=== PATIENT | female | born 1955 | race Caucasian/White ===

== ENCOUNTER 2020-09-25 10:10 | Outpatient (REF) | payer OTHER, SELFPAY ==
--- NOTE | 2020-09-25 | XR_ITS ---
EXAMINATION: XR KNEE, RIGHT CLINICAL INFORMATION: Right knee pain. Possible effusion. COMPARISON: Standing AP knees 04/18/2016 TECHNIQUE: Four views of the right knee. FINDINGS: There is a moderate to large suprapatellar effusion. Hoffa's fat pad is unremarkable. There is no fracture, dislocation or destruction process. There is no joint narrowing or erosive change. There is borderline spurring medial femoral condyle and medial tibial plateau similar to prior radiographs 2016. XR/XR knee RT 4V IMPRESSION: 1. Moderate to large suprapatellar effusion. 2. No acute bony abnormality.
== END 2020-09-25 10:11 | disposition home or self-care (01) ==
LOC: HO.HMGCX 10:10
PROVIDERS: PCP Internal Medicine; Visit Provider Internal Medicine
DX: M25.561 Pain in right knee (principal)
CPT/HCPCS: 73564

== ENCOUNTER → 2020-09-28 12:12 | Outpatient (BNVA) | payer OTHER, SELFPAY | PROVIDERS: Visit Provider Orthopaedic Surgery | DX: M23.91 Unspecified internal derangement of right knee (principal) | CPT/HCPCS: 20610 ==

== ENCOUNTER 2020-11-10 10:00 | Outpatient (RCR) | payer OTHER, SELFPAY ==
--- NOTE | 2020-10-13 12:20 | MHC.PT.EP ---
[facility] [place] Office [place] Office [place] [facility] [address] Susana Lehman [address] [phone] F: [phone] F: [phone] F: [phone] F: [phone] Physical Therapy Plan of Care Date of Evaluation: 10/13/20 Date of Surgery: Diagnosis: This is a 65 yo female presenting to skilled PT with internal derangement of the R knee. Assessment: Patient reports her L knee buckled and she landed harder on the R (on 09/19). She saw Dr. Mejia who removed fluid which helped a little and referred to PT. The initial pain was so bad she could not walk however fluid removal helped slightly. She reports instability/buckling and she has sharp pain (medially/anterior and posteriorly/laterally) that is constant. She is still limited in ascending and descending stairs. She is also bothered when sleeping as she cannot find a comfortable position. Additionally, she is also functionally limited in transfers into standing, walking (every time she puts weight through the extremity) and needs to adapt with ADLs. She wears a knee brace throughout the day currently (sleeve). Assessment reveals pain that ranges up to a 7/10. She demos decreased knee and ankle ROM, decreased knee and ankle strength, impaired gait pattern with inability to reach full knee extension and adequate ankle DF, impaired patella mobility and swelling as well as gross functional decline with mobility and transfers. She is a great candidate for skilled PT 2x/wk for 5wks. Frequency and Duration: The patient will be seen 2x/wk for 5wks Short Term Goals: I in HEP Demo normal knee AROM Perform proper squatting techniques without cues, instability or pain [employer] Trader Goals: Demo equal swelling B Perform stairs with proper gait pattern Improve pain to no more than 2/10 and report no instability with movements throughout day Demo normal strength B Treatment Plan: Modalities to reduce pain, spasms and effusion. Manual therapy to restore motion and function. Therapeutic exercise to improve strength and flexibility. Neuromuscular re-education for posture and balance. Therapeutic activities to return to functional activities of daily living. Electronically signed by: Pastora Stuart PT Please sign and return to therapist. Thank you for your referral.
--- NOTE | 2020-12-04 13:41 | MHC.PT.DC ---
[facility] [place] [facility] [place] Office [place] Office [address] Susana Lehman 140 [facility] [phone] F: [phone] F: [phone] F: [phone] F: [phone] Physical Therapy Discharge Report Diagnosis: This is a 65 yo female presenting to skilled PT with internal derangement of the R knee. Date of Surgery: Date of Evaluation: 10/13/20 Date of Discharge: 12/04/20 Treatments to Date: 7 Cancellations to Date: 0 No Shows to Date: 0 Discharge Status: Improved Function Patient Elected to Stop Discharge Summary: Pt WAS PROGRESSING WELL IN PT FOR HER RIGHT KNEE PAIN/DERANGEMENT- SHE HAD TO D/C HERSELF AT THIS TIME DUE TO OTHER FAMILY RESPONSIBILITIES- SHE WAS TOLERATING INCR FUNCTIONAL MOBILITY AND IMPROVED STRENGTH IN Rt LE -Pt TO CONT W HEP SHE IS ABLE AND WILL CONTACT MD IF RIGHT KNEE SXS ARE EXACERBATED. Electronically signed by: Sunitha Park,PT Please sign and return to therapist. Thank you for your referral.
== END 2020-12-04 13:43 | disposition other institution (70) ==
LOC: HO.PTCHIC 10:00
PROVIDERS: PCP Internal Medicine; Visit Provider Orthopaedic Surgery
DX: M23.91 Unspecified internal derangement of right knee (principal)
CPT/HCPCS: 97035; 97110; 97140; 97162

== ENCOUNTER 2021-11-05 14:26 | Outpatient (REF) | payer OTHER, SELFPAY ==
--- NOTE | ~2021-11-05 | MR_ITS ---
EXAMINATION: MR KNEE WITHOUT CONTRAST, RIGHT CLINICAL INFORMATION: Right knee swelling. Pain. Decreased range of motion. Twisting injury. COMPARISON: None TECHNIQUE: MRI of the knee without contrast was performed using routine sequences on a high-field scanner. FINDINGS: MENISCI: Medial Meniscus: A radial tear of the posterior horn occurs 1 cm from the posterior root insertion and extends through the full meniscal cross section. Meniscal body is partially extruded medially. A horizontal component of the tear is present at the inner fibers of the meniscal body with significant free-edge fraying. Lateral Meniscus: Free-edge fraying at the posterior horn. No discrete tears. LIGAMENTS: Cruciate: ACL is relatively diminutive, potentially due to a chronic partial tear. Interligamentous cystic changes consistent with mucoid degeneration of the ACL ganglion. The PCL is thickened and low in signal intensity, the result of an old PCL sprain. No tears. Collateral: Edema signal around the MCL is likely reactive to the underlying meniscal abnormality. Collateral ligaments are intact. Mild popliteus tendinosis. EXTENSOR MECHANISM: Enthesopathic spurring is present at the quadriceps tendon insertion on the patella. No tears. ARTICULAR CARTILAGE/BONE: Patellofemoral Compartment: There is mild nonuniform chondral thinning at the patella with a 1.4 x 0.8 cm area of moderate partial-thickness cartilage loss and full-thickness chondral fissuring with underlying cortical irregularity and subcortical cystic change. Small marginal osteophytes. Full-thickness chondral fissures and cortical irregularity are noted at the inferior aspect of medial trochlear facet. Medial Compartment: There is moderate nonuniform chondral thinning at the medial tibial plateau and, to a lesser extent, the medial femoral condyle with foci of full-thickness chondral fissuring and underlying subchondral edema. Anfzm-ow-djjsnsli sized marginal osteophytes are also noted. Lateral Compartment: Small marginal osteophytes. Minimal chondral surface irregularity at the lateral tibial plateau. JOINT FLUID AND BURSAE: Moderate-sized joint effusion. Trace Basilio's cyst. Fluid is present in the popliteus tendon sheath as well as a small 6 mm intermediate signal intensity focus that likely corresponds to a chondral loose body. A few small low-signal intensity loose bodies in the Basilio's cyst also likely correspond to chondral loose bodies, measuring up to 5 mm in diameter. MR/MR knee RT wo con IMPRESSION: 1. Complete radial tear of the posterior horn of the medial meniscus with significant fraying of the meniscal body. 2. Diminutive ACL, potentially due to a chronic partial tear. Thickened PCL may be due to a prior sprain. 3. Mckh-by-sojygljn medial compartment osteoarthritis with more mild osteoarthritis in the patellofemoral and lateral compartments. 4. Moderate-sized joint effusion and trace Basilio's cyst with multiple small chondral loose bodies.
== END 2021-11-05 14:27 | disposition home or self-care (01) ==
LOC: HO.MRI 14:26
PROVIDERS: PCP Internal Medicine; Visit Provider Internal Medicine
DX: M25.561 Pain in right knee (principal); M25.461 Effusion, right knee
CPT/HCPCS: 73721

== ENCOUNTER → 2021-11-22 10:35 | Outpatient (BNVA) | payer OTHER, SELFPAY | PROVIDERS: PCP Internal Medicine; Visit Provider Orthopaedic Surgery | DX: M23.203 Derangement of unspecified medial meniscus due to old tear or injury, right knee (principal) | CPT/HCPCS: 99212 ==

== ENCOUNTER 2021-11-24 07:29 | Outpatient (REF) | payer OTHER, SELFPAY ==
[2021-11-24 11:28] LABS: MANUAL DIFF FLAG NO
[2021-11-24 11:45] LABS: Basophils Percent Auto 0.7 % (0-2); Eosinophils Absolute Auto 0.2 X10*3/uL (0.0-0.4); Eosinophils Percent Auto 3.6 % (0-4); Hematocrit 41.4 % (37.0-47.0); Hemoglobin 13.8 g/dl (12.0-16.0); Imm Gran Abs Auto 0.03 X10*3/uL (0.00-0.03); Imm Gran Pct Auto 0.5 % (0.0-0.4); Lymphocytes Absolute Auto 1.4 X10*3/uL (1.2-4.9); Lymphocytes Percent Auto 24.1 % (20-40); Mean Corpuscular HGB Conc 33.3 g/dl (31.0-35.0); Mean Platelet Volume 10.6 fL (9.4-12.3); Monocytes Absolute Auto 0.5 X10*3/uL (0.1-1.2); Monocytes Percent Auto 8.3 % (2-11); Neutrophils Absolute Auto 3.6 x10*3/uL (2.0-8.3); Neutrophils Percent Auto 62.8 % (45-73); Platelet Count 210 X10*3/uL (160-400); Red Blood Count 4.45 X10*6/uL (4.20-5.50); Red Cell Distribution Width 12.2 % (11.0-16.0); White Blood Count 5.8 X10*3/uL (4.8-10.8)
[2021-11-24 12:27] LABS: Alanine Aminotransferase 29 U/L (0-31); Albumin Level 4.1 g/dL (3.5-5.0); Alkaline Phosphatase 66 U/L (39-117); Anion Gap 13 (12-20); Aspartate Amino Transferase 24 U/L (5-31); Bilirubin Total 0.7 mg/dL (0.0-1.0); Blood Urea Nitrogen 14 mg/dL (9-16); Calcium 9.5 mg/dL (8.4-10.2); Carbon Dioxide 27 mmol/L (22-29); Chloride 100 mmol/L (96-108); Cholesterol 196 mg/dL; Estimated Glomerular Filt Rate > 60; Glucose Fasting 108 mg/dL (60-99); HDL Cholesterol 56 mg/dL; LDL Cholesterol Calculated 119 mg/dl; Potassium 3.6 mmol/L (3.3-5.1); Sodium 136 mmol/L (135-145); Total Protein 6.7 g/dL (6.5-8.0); Triglycerides 105 mg/dL
== END 2021-11-24 07:30 | disposition home or self-care (01) ==
LOC: HO.HMGCLDS 07:29
PROVIDERS: Visit Provider Internal Medicine
DX: Z00.00 Encounter for general adult medical examination without abnormal findings (principal); R53.83 Other fatigue; E78.5 Hyperlipidemia, unspecified
CPT/HCPCS: 36415; 80053; 80061; 85025

== ENCOUNTER 2022-01-04 14:57 | Outpatient (REF) | payer OTHER, SELFPAY ==
--- NOTE | ~2022-01-04 | MM_ITS ---
EXAMINATION: BONE DENSITOMETRY CLINICAL INDICATION: Encounter for screening for osteoporosis. COMPARISON: None (current study represents initial baseline exam). TECHNIQUE: Using a VetCompare DXA System (software version: 13.1) manufactured by [employer], dual-energy x-ray absorptiometry was performed of the lumbar spine and left hip. The images are of good technical quality. Summary results are attached. FINDINGS: AP SPINE L1-L4: BMD 1.293 g/cm2, Z-score 1.7, T-score 0.9, normal. LEFT FEMUR, NECK: BMD 0.918 g/cm2, Z-score 0.1, T-score -0.9, normal. LEFT FEMUR, TOTAL: BMD 0.992 g/cm2, Z-score 0.5, T-score -0.1, normal. IDENTIFIED RISK FACTORS: Early menopause, secondary osteoporosis, history of fracture (adult), thiazide, hysterectomy, right oophorectomy. HISTORY OF FRACTURE: Fibula. MEDICATIONS: None listed. MM/XR DEXA axial skeleton IMPRESSION: 1. DIAGNOSIS: Normal bone density based on the lowest T-score value of -0.9 in the femoral neck applying World Health Organization criteria. 2. 10-YEAR FRACTURE RISK PREDICTION, FRAX: According to the guidelines, FRAX calculation should only be performed on patients in the osteopenia bone density category. Therefore, FRAX was not performed on this patient. 3. Treatment Recommendations: NOF guidelines recommend consideration for treatment in postmenopausal women and men age 50 and older presenting with the following: -A hip or vertebral (clinical or morphometric) fracture. -T-score less than or equal to -2.5 at the femoral neck or spine after appropriate evaluation to exclude secondary causes. -Low bone mass at the hip or spine and a 10-year fracture probability by FRAX of greater than or equal to 3% for hip fracture or greater than or equal to 20% for major osteoporotic fracture based on the [place] adapted WHO algorithm. 4. Other Recommendations: All treatment decisions require clinical judgment and consideration of individual patient factors, including patient preferences, comorbidities, previous drug use, risk factors not captured in the FRAX model (e.g. frailty, falls, vitamin D deficiency, increased bone turnover, interval significant decline in bone density) and possible under or overestimation of fracture risk by FRAX. FUTURE SCAN RECOMMENDATION: People with diagnosed cases of osteoporosis or at high risk for fracture should have regular bone mineral density tests. For patients eligible for Medicare, routine testing is allowed once every 2 years. The testing frequency can be increased to one year for patients who have rapidly progressing disease, those who are receiving or discontinuing medical therapy to restore bone mass, or have additional risk factors.
== END 2022-01-04 14:58 | disposition home or self-care (01) ==
LOC: HO.MAMMO 14:57
PROVIDERS: Visit Provider Internal Medicine
DX: Z13.820 Encounter for screening for osteoporosis (principal); Z78.0 Asymptomatic menopausal state
CPT/HCPCS: 77080

== ENCOUNTER 2022-02-18 12:38 | Outpatient (REF) | payer OTHER, SELFPAY ==
--- NOTE | ~2022-02-18 | CT_ITS ---
EXAMINATION: CT ABDOMEN AND PELVIS WITHOUT CONTRAST CLINICAL INFORMATION: Gross hematuria. COMPARISON: None. TECHNIQUE: Multidetector volumetric imaging was performed from the superior aspect of the liver through the pubic symphysis. Sagittal and coronal reformatted images were obtained on the technologist's workstation. This CT examination was performed using dose optimization techniques as appropriate, variously including the following: *Automated exposure control *Adjustment of mA and/or kV according to patient size (this includes techniques or standardized protocols for targeted exams where dose is matched to indication/reason for exam; i.e. extremities or head) *Use of iterative reconstruction technique DLP: 597 mGy-cm. FINDINGS: LUNG BASES: The lung bases are clear. Heart size is normal. LIVER, GALLBLADDER, AND BILIARY TREE: The liver is normal in size, shape, and attenuation. No focal hepatic lesion or biliary ductal dilatation is present. The gallbladder is unremarkable with no evidence of radiopaque gallstones, gallbladder wall thickening, or obvious pericholecystic inflammatory changes. PANCREAS: Unremarkable. SPLEEN: Unremarkable. ADRENAL GLANDS: Unremarkable. KIDNEYS AND URETERS: The kidneys are normal in size, shape, and attenuation. No hydronephrosis, hydroureter, or calculi seen. No perinephric stranding. BLADDER: Unremarkable. GASTROINTESTINAL TRACT: There is scattered diverticuli, stool and gas seen throughout the colon without diverticulitis or distention. The small bowel loops are normal caliber. Appendix is normal caliber. No free air or free fluid seen. ABDOMINAL WALL: No significant hernia is appreciated. LYMPH NODES: Normal. VASCULAR: Unremarkable. PELVIC VISCERA: There are scattered phleboliths in the pelvis. The uterus is surgically absent. OSSEOUS STRUCTURES: There is moderate ventral spondylosis lower dorsal upper lumbar spine. No aggressive lytic or sclerotic process seen. CT/CT abdomen pelvis wo con IMPRESSION: No radiopaque urolith or hydroureteronephrosis. Mild constipation with colonic diverticulosis but no diverticulitis. Fleischner guidelines were followed.
== END 2022-02-18 12:39 | disposition home or self-care (01) ==
LOC: HO.CT 12:38
PROVIDERS: PCP Internal Medicine; Visit Provider Physician Assistant
DX: R31.0 Gross hematuria (principal)
CPT/HCPCS: 74176

== ENCOUNTER 2022-03-23 14:17 | Outpatient (REF) | payer OTHER, MEDICARE, SELFPAY ==
[2022-03-23 16:53] LABS: Blood Urea Nitrogen 23 mg/dL (9-16); Estimated Glomerular Filt Rate 60
== END 2022-03-23 14:18 | disposition home or self-care (01) ==
LOC: HO.HMGCLDS 14:17
PROVIDERS: Visit Provider Physician Assistant
DX: R31.0 Gross hematuria (principal)
CPT/HCPCS: 36415; 82565; 84520

== ENCOUNTER 2022-06-09 14:17 | Outpatient (REF) | payer OTHER, MEDICARE, SELFPAY ==
--- NOTE | ~2022-06-09 | XR_ITS ---
EXAMINATION: XR LUMBOSACRAL SPINE WITH OBLIQUES CLINICAL INFORMATION: Pain COMPARISON: None TECHNIQUE: 3 views of the lumbar spine. Lateral view of the lumbosacral junction. FINDINGS: There is mild curvature of the lumbar spine to the left. Bone alignment is otherwise normal. There is multilevel degenerative spondylosis. There is multilevel facet arthritis. Disc spaces are normal. Paraspinal soft tissues are normal. XR/XR lumbar spine 4V min IMPRESSION: Mild scoliosis and degenerative changes.
--- NOTE | ~2022-06-09 | XR_ITS ---
EXAMINATION: XR HIP, RIGHT CLINICAL INFORMATION: Pain. Radiculopathy. COMPARISON: None TECHNIQUE: Two views of the right hip. FINDINGS: Bone alignment is normal. No fracture or dislocation. There is arthritis at the right hip joint. There is soft tissue ossification adjacent to the right greater trochanter. XR/XR hip RT min 2V IMPRESSION: Mild arthritis at the right hip joint and soft tissue ossification adjacent to the right greater trochanter.
== END 2022-06-09 14:18 | disposition home or self-care (01) ==
LOC: HO.HMGCX 14:17
PROVIDERS: PCP Internal Medicine; Visit Provider Internal Medicine
DX: M25.551 Pain in right hip (principal); M54.16 Radiculopathy, lumbar region
CPT/HCPCS: 72110; 73502

== ENCOUNTER 2023-03-06 08:25 | Outpatient (REF) | payer OTHER, SELFPAY | END 2023-03-06 08:26 | disposition home or self-care (01) | LOC: HO.LAB 08:25 | PROVIDERS: PCP Internal Medicine; Visit Provider Internal Medicine | DX: Z00.00 Encounter for general adult medical examination without abnormal findings (principal); R53.83 Other fatigue; E78.5 Hyperlipidemia, unspecified | CPT/HCPCS: 36415; 80053; 80076; 82248; 85025 ==

== ENCOUNTER 2023-08-08 12:00 | Outpatient (REF) | payer OTHER, SELFPAY | END 2023-08-08 12:01 | disposition home or self-care (01) | LOC: HO.MAMMO 12:00 | PROVIDERS: PCP Internal Medicine; Visit Provider Internal Medicine | DX: Z12.31 Encounter for screening mammogram for malignant neoplasm of breast (principal) | CPT/HCPCS: 77063; 77067 ==

== ENCOUNTER → 2023-08-08 12:15 | Outpatient (BNV) | payer OTHER, SELFPAY | PROVIDERS: PCP Internal Medicine; Visit Provider Radiology Diagnostic Radiology | DX: Z12.31 Encounter for screening mammogram for malignant neoplasm of breast (principal) | CPT/HCPCS: 77063; 77067 ==

== ENCOUNTER 2025-04-28 14:53 | Outpatient (AMB) | payer OTHER, SELFPAY ==
--- NOTE | 2025-04-28 14:53 | MHC.PC.OV ---
Vital Signs 04/28/25 15:07 Height 5 ft 1.81 in Weight 191 lb BMI 35.1 BP 135/64 Respiration 16 Pulse 62 Pulse Source Pulse Oximeter Temp 98.1 F Temp Source Temporal Artery Scan Pulse Oximetry (%) 95 Oxygen Delivery Method Room Air Intake Visit Reasons: Establish Care / Dr. España - see comments [employer]icle[employer] Worker Required: No Accompanied by: Self / Same As Patient Allergies Sulfa (Sulfonamide Antibiotics) (SULFA (SULFONAMIDE ANTIBIOTICS)) Allergy (Severe, Verified 04/28/25 14:53) DECREASE IN WBC, RASH FEVER., Destroys white blood cell count sulindac (SULINDAC) Allergy (Intermediate, Verified 04/28/25 14:53) NAUSEA & VOMITING, intestinal bleeding ibuprofen Allergy (Unknown, Verified 04/28/25 14:53) severe headache levofloxacin (From LEVAQUIN) Allergy (Unknown, Verified 04/28/25 14:53) UNKNOWN merbromin (From Mercurochrome) Allergy (Unknown, Verified 04/28/25 14:53) SPREADS THROUGH WHOLE BODY oxycodone (From OxyContin) Allergy (Unknown, Verified 04/28/25 14:53) Unknown NSAIDS (Non-Steroidal Anti-Inflamma (NSAIDS (NON-STEROIDAL ANTI-INFLAMMA) Adverse Reaction (Intermediate, Verified 04/28/25 14:53) HEADACHES hydrocontin Allergy (Unknown, Uncoded 04/28/25 14:53) hallucinations PERSERVED SALINE SOLUTION Allergy (Unknown, Uncoded 04/28/25 14:53) CONJUCTIVITIS IN BOTH EYES Tobacco use date assessed: 04/28/25 Fall risk assessment: No Falls in past year Last assessed Fall Risk: 04/28/25 Dental Screening Dental Screen Date: 04/28/25 Did you have a dental visit in the last 12 months?: Yes Did you have a dental problem in the last 6 months where you did not have access to dental care?: No Was dental information given to patient?: Patient has dentist [facility] Medical History (Updated 04/28/25 @ 15:32 by Goyo Weeks MD) Internal derangement of right knee Anxiety Arthritis Hypertension Surgical History [place] teeth removed History of repair of right rotator cuff History of hysterectomy History of tonsillectomy Family History (Updated 04/28/25 @ 15:12 by SABINA Wood) Father No problems noted. Mother BP (high blood pressure) Social History (Updated 04/28/25 @ 15:13 by SABINA Wood) Housing: House Alcohol intake: current Alcohol intake frequency: a few times a week Patient Tobacco Use Status: Never used Tobacco service: No Current occupational status: retired Cognitive needs: No Hearing needs: No Vision needs: Yes (rx glasses) Questionnaire PHQ-9 Over the last 2 weeks, how often have you been bothered by any of the following problems? 1. Little interest or pleasure in doing things: not at all 2. Feeling down, depressed, or hopeless: not at all 3. Trouble falling or staying asleep, or sleeping too much: not at all 4. Feeling tired or having little energy: not at all 5. Poor appetite or overeating: not at all 6. Feeling bad about yourself - or that you are a failure or have let yourself or your family down: not at all 7. Trouble concentrating on things, such as reading the newspaper or watching television: not at all 8. Moving or speaking so slowly that other people could have noticed. Or the opposite - being so fidgety or restless that you have been moving around a lot more than usual: not at all 9. Thoughts that you would be better off or of hurting yourself in some way: not at all Total score: 0 Source: Developed by Drs. Jose Angel Calvillo, Sangeetha Owen, Marco lEaine and colleagues, with an educational geovany from [employer]. Thrive Questionnaire Date Thrive assessed: 04/28/25 I am a: Patient What is your living situation today?: I have a steady place to live Within the past 12 months, did the food you bought not last and you didn't have the money to get more?: Never true Within the past 12 months, did you worry whether your food would run out before you got money to buy more?: Never true Do you have trouble paying for medicines?: No Do you have trouble getting transportation to medical appointments?: No Do you have trouble paying your heating and electricity bill?: No Do you have trouble taking care of your child, family member or friend?: No Do you have trouble with day-to-day activities such as bathing, preparing meals, shopping, managing finances, etc.?: No Are you currently unemployed and looking for a job?: No Are you interested in more education?: No Please select the resources that you would like help with: None THRIVE Score: 0 AUDIT C Alcohol Use Questionnaire (AUDIT-C) 1. How often do you have a drink containing alcohol?: 2-4 times a month 2. How many drinks containing alcohol do you have on a typical day when you are drinking?: 1 or 2 3. How often do you have six or more drinks on one occasion?: Never Total Score: 2 KEO-7 AMB Questionnaire KEO-7 Date KEO - 7 assessed: 04/28/25 Feeling nervous, anxious, or on edge: 0 = Not at all Not being able to stop or control worryin = Not at all Worrying too much about different things: 0 = Not at all Trouble relaxin = Not at all Being so restless that it is hard to sit still: 0 = Not at all Becoming easily annoyed or irritable: 0 = Not at all Feeling afraid as if something awful might happen: 0 = Not at all Total KEO-7 score (0-4 normal; 5-9 mild; 10-14 moderate; 15-21 severe): 0 Source: Developed by Drs. Jose Angel Calvillo, Sangeetha Owen, Marco Elaine and colleagues, with an educational geovany from [employer]. Physical exam (Primary Care) Vital Signs: Last Vital Signs Temp 98.1 F 04/28/25 15:07 Pulse 62 04/28/25 15:07 Resp 16 04/28/25 15:07 BP 135/64 04/28/25 15:07 Pulse Ox 95 04/28/25 15:07 Oxygen Delivery Method Room Air 04/28/25 15:07 BMI result Body Mass Index 35.1 Tobacco/Smoking Status: Tobacco use Status Tobacco use date assessed 04/28/25 04/28/25 14:55 Patient Tobacco Use Status Never used Tobacco 04/28/25 15:13 PHQ-9: PHQ-9 Score PHQ-9: Total score 0 04/28/25 15:04 Thrive Assessment: Date of Thrive Assessment Date Thrive assessed 04/28/25 04/28/25 15:04 Coding Level of Care Code New Pt Level 4 (30790) Complex EM visit Add On G2211 Diagnoses Anxiety F41.9 Assessment & Plan Assessment & Plan (1) Anxiety: Code(s): F41.9 - Anxiety disorder, unspecified Category: Medical Plan: History of Present Illness - The patient is a 70-year-old female presenting for medication management and preventative care. - Anxiety disorder: The patient takes lorazepam, typically one in the morning, and occasionally a second dose if the day is particularly stressful. She has been prescribed up to three doses per day but usually takes two. She experiences anxiety in crowded or uncontrollable situations. - Hypertension: The patient is on hydrochlorothiazide for hypertension management, which was recently refilled. - Influenza: The patient reported having the flu approximately two weeks ago and is still recovering, with some residual stomach discomfort. - Breast lump (resolved): Approximately five years ago, the patient discovered a blood-filled lump on her breast while gardening. Subsequent mammograms and biopsies revealed only blood, with no malignancy detected. She continues to experience pain at the site, likely due to scar tissue. - Preventative care: The patient has not had a mammogram this year but agreed to have one ordered. She has never had a colonoscopy and expressed reluctance to undergo one, citing no family history of colon cancer. Social History - Employment: The patient is retired. - Family status: She is caring for a handicapped sister who uses a wheelchair. - Social interactions: The patient reports discomfort in crowded or uncontrollable situations. Review of Systems - Respiratory: Reports crackles, indicating resolving respiratory infection. - Gastrointestinal: Reports residual stomach discomfort following influenza. Physical Exam General: Cooperative and healthy appearing Nutritional Appearance: Well nourished Orientation/consciousness: Patient oriented x3 Limitations: No limitations Head: Normal to inspection General: Appearance normal, both eyes and all related structures Neck: Normal visual inspection Chest: Normal palpation of entire chest wall Respiratory: Crackles present ormal respiratory effort Neurology: Patient oriented x3 Results Plan 1. Anxiety Disorder - Continue lorazepam with adjusted prescription to twice daily as needed. 2. Hypertension - Continue current management with hydrochlorothiazide. 3. Influenza - Monitor symptoms and provide supportive care as needed. 4. Breast Lump (Resolved) - Continue annual mammograms to monitor for any changes. 5. Preventative Care: Mammogram - Order mammogram for routine screening. 6. Preventative Care: Colon Cancer Screening Discussion - Discussed options for colon cancer screening, including Cologuard, but patient declined colonoscopy. Discussion Notes I discussed with the patient the importance of continuing her current medications, including lorazepam and hydrochlorothiazide. We reviewed the need for regular mammograms and discussed colon cancer screening options, though the patient declined a colonoscopy. I emphasized the importance of monitoring her symptoms following influenza and encouraged supportive care. We agreed to follow up in six months to reassess her condition and review any new concerns. Patient Instructions - Continue taking lorazepam as prescribed, up to twice daily as needed. - Continue taking hydrochlorothiazide for blood pressure management. - Schedule and complete the mammogram as ordered. - Monitor symptoms of influenza and seek care if they worsen. - Follow up in six months for reassessment.
[2025-04-28 15:07] VITALS: BP 135/64; PULSE 62; RESP 16; TEMP 36.7; O2SAT 95; BMI 35.1
== END 2025-04-28 15:27 | disposition home or self-care (01) ==
LOC: HO.HMCSH 14:53
PROVIDERS: PCP Internal Medicine; Visit Provider Internal Medicine
DX: F41.9 Anxiety disorder, unspecified (principal)

== ENCOUNTER 2025-04-30 09:58 | Outpatient (REF) | payer OTHER, MEDICARE, SELFPAY ==
[2025-04-30 13:55] LABS: Appearance Urine Clear; Glucose Urine UA Negative (Negative); PH 5.5 (5.0-9.0); Specific Gravity - Urine 1.020 (1.005-1.025)
[2025-04-30 14:00] LABS: Hematocrit 39.8 % (37.0-47.0); Hemoglobin 13.6 g/dl (12.0-16.0); Mean Corpuscular HGB Conc 34.2 g/dl (31.0-35.0); Mean Corpuscular Hemoglobin 30.8 pg (27.0-33.0); Mean Corpuscular Volume 90.2 fL (80.0-98.0); NRBC Abs Auto 0.000 X10*3/uL (0.0-0.012); NRBC Pct Auto 0.0 /100WBC (0.0-0.2); Platelet Count 317 X10*3/uL (160-400); Red Blood Count 4.41 X10*6/uL (4.20-5.50); White Blood Count 7.2 X10*3/uL (4.8-10.8)
[2025-04-30 14:36] LABS: Alanine Aminotransferase 75 U/L (0-31); Albumin Level 4.1 g/dL (3.5-5.0); Alkaline Phosphatase 80 U/L (39-117); Anion Gap 14 (12-20); Aspartate Amino Transferase 47 U/L (5-31); Blood Urea Nitrogen 16 mg/dL (9-16); Calcium 9.2 mg/dL (8.4-10.2); Carbon Dioxide 25 mmol/L (22-29); Chloride 98 mmol/L (96-108); Cholesterol 168 mg/dL (<200); Estimated Glomerular Filt Rate > 60; HDL Cholesterol 45 mg/dL (>40); Potassium 3.3 mmol/L (3.3-5.1); Sodium 134 mmol/L (135-145); Thyroid Stimulating Hormone 0.88 uIU/mL (0.32-4.0); Total Protein 6.8 g/dL (6.5-8.0); Triglycerides 186 mg/dL (<150)
== END 2025-04-30 09:59 | disposition home or self-care (01) ==
LOC: HO.HMGCLDS 09:58
PROVIDERS: PCP Internal Medicine; Visit Provider Internal Medicine
DX: F41.9 Anxiety disorder, unspecified (principal); Z13.6 Encounter for screening for cardiovascular disorders
CPT/HCPCS: 36415; 80048; 80061; 80076; 81003; 84443; 85027

== ENCOUNTER 2025-06-24 14:57 | Outpatient (AMB) | payer OTHER, MEDICARE, SELFPAY ==
--- NOTE | 2025-06-24 15:21 | AM.OFFWIN_ITS ---
Intake Vital Signs 06/24/25 15:23 Height 5 ft 1.81 in Weight 196 lb BMI 36.1 BP 140/65 H Blood Pressure Location Rt brachial Position Sitting Pulse 65 Pulse Source Pulse Oximeter Temp 98.5 F Temp Source Oral Pulse Oximetry (%) 93 Oxygen Delivery Method Room Air Intake Visit Reasons: EP Right eye pain/irritation Intake Note: EP feels there is a piece of sand in her right eye since yesterday. She also feels sharp pain in her eyes. Patient Tobacco Use Status: Never used Tobacco Allergies Sulfa (Sulfonamide Antibiotics) (SULFA (SULFONAMIDE ANTIBIOTICS)) Allergy (Severe, Verified 06/24/25 15:34) DECREASE IN WBC, RASH FEVER., Destroys white blood cell count sulindac (SULINDAC) Allergy (Intermediate, Verified 06/24/25 15:34) NAUSEA & VOMITING, intestinal bleeding ibuprofen Allergy (Unknown, Verified 06/24/25 15:34) severe headache levofloxacin (From LEVAQUIN) Allergy (Unknown, Verified 06/24/25 15:34) UNKNOWN merbromin (From Mercurochrome) Allergy (Unknown, Verified 06/24/25 15:34) SPREADS THROUGH WHOLE BODY oxycodone (From OxyContin) Allergy (Unknown, Verified 06/24/25 15:34) Unknown NSAIDS (Non-Steroidal Anti-Inflamma (NSAIDS (NON-STEROIDAL ANTI-INFLAMMA) Adverse Reaction (Intermediate, Verified 06/24/25 15:34) HEADACHES hydrocontin Allergy (Unknown, Uncoded 04/28/25 14:53) hallucinations PERSERVED SALINE SOLUTION Allergy (Unknown, Uncoded 04/28/25 14:53) CONJUCTIVITIS IN BOTH EYES Do you need a note to return to daycare/school/sports/work: No HPI HPI Comments History of Present Illness Details History of Present Illness - The patient is a 70-year-old female pr esenting with right eye irritation. - The eye discomfort began yesterday, in itially feeling like something was in the eye. - The pain is constant and worsens with blinking - The discomfort progressed from irritat ion to pain, with no improvement from [id number] eye drops. - The patient attempted using refresh ey e drops, gel lubricating drops, and Visine, none of which alleviated the symptoms. - The patient does not wear contact lens es and has an eye doctor, though contact was unsuccessful. Review of Systems - Eyes: Reports constant pain, worsens w ith blinking, denies changes in vision, denies discharge or encrustation. All systems reviewed and are unremarkable except as noted in HPI Physical Exam General: Cooperative, healthy appearing, comfortable, no acute distress and well developed Orientation: Patient oriented x3 Limitations: No limitations Head: Normal to inspection Ears: Hearing grossly normal bilaterally Nose: Normal External nose present Face and sinus: Normal facial exam Eyes: Appearance normal, both eyes and all related structures. see Fluroscein eye exam and PE exam below Neck: Normal visual inspection and Yes full ROM Respiratory: Normal respiratory effort and able to speak in complete sentences. Skin: No rashes or lesions noted Neuro: Patient oriented x3 Extremities: Normal to inspection [facility] Medical History (Updated 06/24/25 @ 15:57 by Meaghan Bobby PA-C) Internal derangement of right knee Anxiety Arthritis Hypertension Surgical History [place] teeth removed History of repair of right rotator cuff History of hysterectomy History of tonsillectomy Family History (Updated 04/28/25 @ 15:12 by SABINA Wood) Father No problems noted. Mother BP (high blood pressure) Social History (Updated 04/28/25 @ 15:13 by SABINA Wood) Housing: House Alcohol intake: current Alcohol intake frequency: a few times a week Patient Tobacco Use Status: Never used Tobacco service: No Current occupational status: retired Cognitive needs: No Hearing needs: No Vision needs: Yes (rx glasses) Physical Exam Vital Signs: Last Vital Signs Temp 98.5 F 06/24/25 15:23 Pulse 65 06/24/25 15:23 BP 140/65 H 06/24/25 15:23 Pulse Ox 93 06/24/25 15:23 Oxygen Delivery Method Room Air 06/24/25 15:23 BMI result Body Mass Index 36.1 Eyes General: appearance normal, both eyes and all related structures Alignment and Position: alignment normal and position normal Periorbital: periorbital findings normal Eyelids: Yes eyelids normal Conjunctivae: conjunctivae normal Corneas: fluorescein used Pupils: Equal, round and reactive pupils present EOM: EOMs intact bilaterally Neuro Cranial nerves: Yes Equal, round and reactive pupils present Office Procedures Fluorescein eye exam Details: instilled 2 gtts tetracaine, applied Bio-Glow strip and under blue light, 2 corneal abrasions, one oval 0.50cm x 0.25cm at 6 o'clock and larger one, 0.75cm round at 9 o'clock of the right eye Assessment & Plan Assessment & Plan (1) Corneal abrasion, right: Code(s): S05.01XA - Injury of conjunctiva and corneal abrasion without foreign body, right eye, initial encounter Qualifiers: Encounter type: initial encounter Qualified Code(s): S05.01XA - Injury of conjunctiva and corneal abrasion without foreign body, right eye, initial encounter Plan: Patient was informed and verbally consented to the use of an ambient scribe for clinic note documentation during this visit. - Performed a corneal abrasion test using numbing drops and fluorescein dye to check for scratches on the cornea. - Fluoroscein eye exa revealed 2 corneal abrasions, sent RX to pharmacy. - Advised if worsening eye pain or changes in vision occur to go to the Emergency Department or see your Ophthmalogist DONNA. Orders: Orders AMB Fluorescein eye exam Today S05.01XA - Injury of conjunctiva and corneal abrasion without foreign body, right eye, initial encounter Medications: New erythromycin Apply to right eye 4 times a day while awake 0.5 inches ophthalmic-Right QID 3.5 grams 0RF Coding Level of Care Code Est Pt Level 3 (15864) Diagnoses Abrasion of right cornea, initial encounter S05.01XA Encounter type: initial encounter
[2025-06-24 15:23] VITALS: BP 140/65; PULSE 65; TEMP 36.9; O2SAT 93; BMI 36.1
== END 2025-06-24 16:18 | disposition home or self-care (01) ==
PROVIDERS: PCP Internal Medicine; Visit Provider Physician Assistant
DX: S05.01XA Injury of conjunctiva and corneal abrasion without foreign body, right eye, initial encounter (principal)